=== PATIENT | female | born 1950 | race Caucasian/White ===

== ENCOUNTER → 2016-10-13 | Outpatient (CLI) | payer MEDICARE, OTHER | END | disposition home or self-care (01) | LOC: CFH 07:44 | PROVIDERS: ATTEND Family Medicine | DX: M51.36 Other intervertebral disc degeneration, lumbar region (principal); M51.26 Other intervertebral disc displacement, lumbar region; M48.06 Spinal stenosis, lumbar region; M48.07 Spinal stenosis, lumbosacral region; R74.8 Abnormal levels of other serum enzymes | CPT/HCPCS: 72148; 76700 ==

== ENCOUNTER → 2017-06-15 | Outpatient (CLI) | payer OTHER ==
[~2017-06-15] MED LIST: GADOBUTROL 10 MMOL/10 ML VIAL ONE
== END | disposition home or self-care (01) ==
LOC: CFH 14:30
PROVIDERS: ATTEND Neurological Surgery
DX: M48.062 Spinal stenosis, lumbar region with neurogenic claudication (principal); D32.0 Benign neoplasm of cerebral meninges
CPT/HCPCS: 72158; A9585

== ENCOUNTER → 2019-10-27 | Outpatient (CLI) | payer MEDICARE ==
[~2019-10-27] MED LIST changes: +CALC-112 PO; +CETI10TA76 PO; +CHOL10003 PO; +CITA20TA6 PO; +CYAN100072 PO; -GADOBUTROL 10 MMOL/10 ML VIAL ONE; +GLUC-111 PO; +MULT-449 PO; +TRIA1CAP3 PO; +VIT1TABL32 PO; +VITA-73 PO
[2019-10-27 14:14] LABS: BASOPHILS # (AUTO) 0.03 x10^3/uL (0-0.1); BASOPHILS % (AUTO) 0 % (0-1); EOSINOPHILS # (AUTO) 0.17 x10^3/uL (0-0.4); EOSINOPHILS % (AUTO) 2 % (1-7); LYMPHOCYTES % (AUTO) 26 % (22-44); MD NO; MEAN CORPUSCULAR HEMOGLOBIN 28.8 pg (27.0-34.8); MEAN CORPUSCULAR HGB CONC 32.4 g/dL (32.4-35.8); MEAN CORPUSCULAR VOLUME 88.7 fL (80-100); MEAN PLATELET VOLUME 8.4 fL (7.4-10.4); MONOCYTES # (AUTO) 0.64 x10^3/uL (0.2-0.8); MONOCYTES % (AUTO) 8 % (2-9); NEUTROPHILS % (AUTO) 64 % (42-75); PLATELET COUNT 382 x10^3/uL (130-400); RED BLOOD COUNT 4.77 x10^6/uL (3.82-5.3); RED CELL DISTRIBUTION WIDTH 13.8 % (9.6-15.2)
[2019-10-27 14:17] LABS: MICROSCOPIC INDICATED
[2019-10-27 14:21] LABS: ALANINE AMINOTRANSFERASE 30 U/L (12-78); ALBUMIN 3.5 g/dL (3.4-5.0); ANION GAP 7 mmol/L (5-15); CHLORIDE 109 mmol/L (98-107); CREATININE 0.58 mg/dL (0.55-1.02)
[2019-10-27 14:23] LABS: ALKALINE PHOSPHATASE 130 U/L (45-117); BILIRUBIN,TOTAL 0.3 mg/dL (0.2-1.0); TOTAL PROTEIN 7.6 g/dL (6.4-8.2)
== END | disposition home or self-care (01) ==
LOC: STAR 13:05
PROVIDERS: ATTEND Obstetrics & Gynecology Gynecology
DX: Z01.812 Encounter for preprocedural laboratory examination (principal); N81.4 Uterovaginal prolapse, unspecified; N39.3 Stress incontinence (female) (male); I51.7 Cardiomegaly; Z20.828 Contact with and (suspected) exposure to other viral communicable diseases
CPT/HCPCS: 36415; 71046; 80053; 81001; 85025; 87077; 87086; 87635; 93005

== ENCOUNTER 2019-11-03 06:41 | Observation (INO) | payer MEDICARE ==
[~2019-11-03] VITALS: Ht 162.6 cm; Wt 88.0 kg
[2019-11-03] MEDS ORDERED: CHLORHEXIDINE 15 ML UDC MM STA (07:28)
[2019-11-03] MEDS ORDERED: LACTATED RINGERS 1,000 ML IV ONE (07:28)
[2019-11-03] MEDS ORDERED: CHLORHEXIDINE 15 ML UDC ONE (07:32)
[2019-11-03] MEDS ORDERED: INDIGO CARMINE 0.8%, 5ML ONE (08:17)
[2019-11-03] MEDS ORDERED: LIDOCAINE 1%-EPI 1:100K, 20ML ONE (08:18)
[2019-11-03] MEDS ORDERED: FENTANYL PF 250 MCG/5ML ONE (08:25)
[2019-11-03] MEDS ORDERED: NEOMY/POLYMYXIN B GU IRR. 1 ML ONE (08:36)
[2019-11-03] MEDS ORDERED: FUROSEMIDE 20 MG/2 ML ONE (09:07)
[2019-11-03] MEDS ORDERED: OXYcodone 5 MG/5 ML ORAL.SOL UDC PO PRN (09:30)
[2019-11-03] MEDS ORDERED: PROMETHAZINE 25 MG/ML, 1ML IVPush PRN (09:30)
[2019-11-03] MEDS ORDERED: EPHEDRINE 50 MG/ML, 1ML IVPush PRN (09:30)
[2019-11-03] MEDS ORDERED: MEPERIDINE/PF 25MG/0.5ML IVPush PRN (09:30)
[2019-11-03] MEDS ORDERED: ALBUTEROL SULFATE 2.5 MG/3 ML NPPB PRN (09:30)
[2019-11-03] MEDS ORDERED: LABETALOL 5MG/ML, 20ML IV PRN (09:30)
[2019-11-03] MEDS ORDERED: HYDROmorphone 1 MG/ML, 1ML INJ IVPush PRN (09:30)
[2019-11-03] MEDS ORDERED: hydrALAzine 20 MG/ML, 1ML IV PRN (09:30)
[2019-11-03] MEDS ORDERED: ONDANSETRON 2MG/ML, 2ML IVPush PRN (09:30)
[2019-11-03] MEDS ORDERED: DIPHENHYDRAMINE 50 MG/ML, 1ML IVPush PRN (09:30)
[2019-11-03] MEDS ORDERED: ACETAMINOPHEN 325 MG TABLET PO PRN (09:30)
[2019-11-03] MEDS ORDERED: CEFAZOLIN 1,000 MG ONE (10:36)
[2019-11-03] MEDS ORDERED: SUCCINYLCHOLINE 20 MG/ML, 10ML ONE (10:36)
[2019-11-03] MEDS ORDERED: GLYCOPYRROLATE 0.2MG/1ML, 5ML ONE (10:36)
[2019-11-03] MEDS ORDERED: DEXAMETHASONE 4 MG/ML, 1ML ONE (10:36)
[2019-11-03] MEDS ORDERED: PROPOFOL 50 ML ONE (10:36)
[2019-11-03] MEDS ORDERED: ONDANSETRON 2MG/ML, 2ML ONE (10:36)
[2019-11-03] MEDS ORDERED: NEOSTIGMINE 1 MG/ML, 10ML ONE (10:36)
[2019-11-03] MEDS ORDERED: PROPOFOL 10 MG/ML, 20ML ONE (10:36)
[2019-11-03] MEDS ORDERED: ROCURONIUM 10MG/ML,5ML ONE (10:36)
[2019-11-03] MEDS ORDERED: FENTANYL PF 100 MCG/2ML ONE ×2 (10:45→11:17)
[2019-11-03] MEDS ORDERED: OXYcodone 5 MG/5 ML ORAL.SOL UDC ONE (11:17)
[2019-11-03] MEDS: FENTANYL PF 100 MCG/2ML IV PRN ×4 (11:20→11:35)
[2019-11-03] MEDS: HYDROcodone/APAP 5/325 TABLET PO PRN ×2 (13:42→20:19)
[2019-11-03 14:19] VITALS: BP 152/84
[2019-11-03 20:10] VITALS: BP 151/86
[2019-11-03] MEDS: LACTATED RINGERS 1,000 ML IV SCH (20:18)
[2019-11-04 00:04] VITALS: BP 124/71
[2019-11-04] MEDS: HYDROcodone/APAP 5/325 TABLET PO PRN ×3 (00:52→08:45)
[2019-11-04 04:01] VITALS: BP 111/54
[2019-11-04] MEDS: LACTATED RINGERS 1,000 ML IV SCH ×2 (04:17→11:14)
[2019-11-04 08:15] VITALS: BP 112/52
[2019-11-04] MEDS ORDERED: HYDR-3240 PO (09:12)
== END 2019-11-04 12:25 | disposition home or self-care (01) ==
LOC: OUT 06:41 → 4NE 12:20 → OUT 14:12 → DCLOUNGE 11-04 12:14
PROVIDERS: ADMIT Obstetrics & Gynecology Gynecology; ATTEND Obstetrics & Gynecology Gynecology
DX: N81.4 Uterovaginal prolapse, unspecified (principal); Z20.828 Contact with and (suspected) exposure to other viral communicable diseases; R32 Unspecified urinary incontinence; I10 Essential (primary) hypertension; F32.9 Major depressive disorder, single episode, unspecified; E66.9 Obesity, unspecified; Z79.899 Other long term (current) drug therapy
CPT/HCPCS: 36415; 57230; 57283; 57288; 58260; 85014; 87635; 88305; 96360; 96361; C1771; G0378; J0330; J0690; J1100; J1940; J2405; J2704; J2710; J3010; J3490; J7120